=== PATIENT | male | born 1950 | race Caucasian/White ===

== ENCOUNTER → 2021-08-22 | Outpatient (CLI) | payer MEDICARE, SELFPAY | END | disposition home or self-care (01) | LOC: LABSPEC 16:42 | PROVIDERS: Visit Provider Physician Assistant | DX: U07.1 COVID-19 (principal) | CPT/HCPCS: 87635; U0005; U0003 ==

== ENCOUNTER 2021-08-23 17:16 | Outpatient (CLI) | payer MEDICARE, SELFPAY ==
[2021-08-23 17:24] VITALS: BP 135/59; PULSE 79; RESP 16; TEMP 37.2; O2SAT 98; BMI 33.3
[2021-08-23] MEDS: 0.9% Saline Lock 10 ML Syringe IV (17:29)
[2021-08-23 18:28] VITALS: BP 129/60; PULSE 74; RESP 16; TEMP 38.3; O2SAT 98
[2021-08-23] MEDS: Acetaminophen 325 MG Tablet 650 MG PO (18:46)
[2021-08-23 19:34] VITALS: BP 122/42; PULSE 69; RESP 16; TEMP 37.3; O2SAT 97
== END 2021-08-23 19:35 | disposition home or self-care (01) ==
LOC: MS3OUT 17:16 → MS3 17:16
PROVIDERS: Referring Provider Nurse Practitioner Adult Health; Visit Provider Nurse Practitioner Adult Health
DX: U07.1 COVID-19 (principal)
CPT/HCPCS: J7050; M0245; Q0245; A4216

== ENCOUNTER 2024-09-17 06:04 | Day surgery (SDC) | payer MEDICARE, SELFPAY ==
[2024-09-17] VITALS (7 sets, daily range): BP systolic 109–122; BP diastolic 55–72; PULSE 60–67; RESP 16–18; TEMP 36.3–36.4; O2SAT 92–98; BMI 37.6
--- NOTE | 2024-09-17 | IMM_PTH ---
PATIENT: ANTOINE DOMÍNGUEZ LOC: EN U#:[id number] AGE/SX: 74/M ROOM: RE09/17/[address]: Dr. Earl Fernandez DO : 1950 BED: DIS: 09/17/2024 SPEC #: [id number] RECD: 09/20/24 10:54 STATUS: ROSEANNE REQ #: [id number] DUANE: 09/17/24 00:[address]: Earl Fernandez DEPT: IMMUNOHISTOCHEMISTRY RECD BY: Brice Salvador ENTERED: 09/20/24 10:54 SP TYPE: IMMUNO OTHR DR: JAMES Rao Tissues: Esophagus, NOS Procedures: P53 (initial) KI-67 (add) PHYSICIAN & INSTITUTION [place] [id number] SPECIMEN INFORMATION: Tissue Source: Distal esophagus biopsy Clinical Info: Dysphagia and GERD Specimen Number: [id number] CPT code: 04852,80074 METHODOLOGY: Deparaffinized sections of prefer/formalin-fixed tissue or PAP/DQ stained slides are incubated with monoclonal/polyclonal antibodies/oligonucleotide probes. Localization is made via biotin free immunoperoxidase method. Appropriate controls are performed and reacted as expected. Results on target cell population are indicated in the following table: RESULTS: ANTIBODY / CLONE RESULT P53 (DO-7) positive, indeterminite type Ki-67 (30-9) positive, low These tests were developed and their performance characteristics determined by [facility]. They may not have been cleared or approved by the U.S. Food and Drug Administration. The FDA has determined that such clearance or approval is not necessary. The above immunohistochemical/dualISH markers are ordered and reviewed by the Pathologist. INTERPRETATION: Distal esophagus, biopsy: No definite evidence of dysplasia. 09/21/2024
--- NOTE | 2024-09-17 06:40 | PCM.PRE.AN2 ---
ASA Classification* ASA Classification ASA Classification: 2 Assessment & Plan Anesthesia* Anesthesia Assessment Anesthesia Assessment: Discussed sedation and/or anesthesia options, risks, benefits, and alternatives with patient/parents/legal guardian/POA. Questions invited. The patient/parents/legal guardian/POA seems to understand and agrees to proceed with anesthesia plan. Reviewed the physical assessment, medical history, allergy history and patient home medications list prior to surgery/procedure/anesthetic and documented any changes. Performed airway and anesthesia risk assessments. Anesthesia Type Anesthesia Type: MAC Anesthesia Focused Assessment* Airway Assessment Mouth opens: >3 cm Mallampati Score: II Focused Labs Anesthesia Preop lab: CBC CHEMISTRY COAG Pre-Assessment Diagnosis/Proposed Procedure Planned Operative Procedure(s): EGD Anesthesia History Anesthesia History - veneer stapler: Anesthesia History - veneer stapler Hx Hospitalization No 09/13/24 10:24 Any Problems With Anesthesia No 09/13/24 10:24 Cholinesterase deficiency No 09/13/24 10:24 You/Your Family Experience No 09/13/24 10:24 fever (hyperthermia) with Relationship Recent Exposure to Contagious No 09/17/24 06:36 Disease Does patient have nerve No 09/13/24 10:24 stimulator Patient instructed to have device shut off --Does patient have Pacemaker or ICD? When Was Last Pacemaker Check QUESTION #4 FULL TEXT: You/Your Family Experience fever (hyperthermia) with Anesthesia Last Oral Intake Last Oral intake: Last Oral Intake NPO since Meds taken in AM with sips of water? Meds patient instructed to take am of surgery PONV PONV - veneer stapler: PONV - veneer stapler Female No 09/13/24 10:24 HX of Motion Sickness No 09/13/24 10:24 HX of N/V After Surgery No 09/13/24 10:24 Non-Smoker Yes 09/13/24 10:24 Duration of Surgery greater No 09/13/24 10:24 than 60 minutes Number of Risk Factors 1 09/13/24 10:24 PONV Score Low Risk 09/13/24 10:24 Height & Weight Height & Weight: Anesthesia: Height & Weight Height 5 ft 8 in 08/23/21 17:24 Respiratory Assessment Respiratory Assessment - veneer stapler: Respiratory Tract Infection Hx - veneer stapler Hx Respiratory Tract Infection No 09/13/24 10:24 STOP Sleep Apnea STOP Sleep Apnea - veneer stapler: STOP Sleep Apnea - veneer stapler Hx Hypertension No 09/13/24 10:24 Hx Sleep Apnea Yes 09/13/24 10:24 CPAP No 09/13/24 10:24 BIPAP No 09/13/24 10:24 Do you snore loudly (louder than talking or can be heard Do you often feel tired/ fatigued/ sleepy during daytime? Has anyone observed you stop breathing during sleep? STOP Results Positive 09/13/24 10:24 QUESTION #5 FULL TEXT : Do you snore loudly (louder than talking or can be heard through closed doors)? Tobacco Use History Tobacco Use History - veneer stapler: Tobacco Use History - veneer stapler Tobacco Use Smoking Status Never smoker 09/13/24 10:24 Hx Tobacco Use No 09/13/24 10:24 Years Smoking Packs Smoked per Day Smoking Cessation Date was within the last 15 years Hx Smoking Cessation Date Hx Smoking Cessation Counseling Hematologic Medial History Hematologic Hx - veneer stapler: Hematologic Medical Hx - herb digger Hx of Blood Transfusion No 09/13/24 10:24 Hx of Transfusion in last 3 No 09/13/24 10:24 Months Date of Last Transfusion (if within last 3 months) Ever experience any problems No 09/13/24 10:24 with transfusion(s)? Specify any problems Hx of Preganancy in last 3 N/A 09/13/24 10:24 Months Nurse Filling Out Transfusion NBUCHER 09/13/24 10:24 & Questions: Date: 09/13/24 09/13/24 10:24 Time: 10:26 09/13/24 10:24 Patient unable to answer at this time (ie. confused, unrespo /Reproduction History /Reproductive History - veneer stapler: /Reproductive Hx- veneer stapler Hx Now No 09/13/24 10:24 Gestational Age (in weeks): EDC: Hx Hx Para Hx Section SAB No 09/13/24 10:24 PFSH Medical History Wears glasses Restless legs Difficulty swallowing History of IBS Heartburn Gastric reflux Sleep apnea Non-smoker History of stress test Irritable bowel syndrome Mild obstructive sleep apnea Fatigue Xanthelasma Vasovagal syncope GERD (gastroesophageal reflux disease) Home Medications ?Medication ?Instructions ?Recorded ?Last Taken ?Type ascorbic acid (vitamin C) 1,000 mg 1 g PO DAILY 09/13/24 Unknown History tablet (Vitamin C) Allergy/AdvReac Type Severity Reaction Status Date / Time No Known Allergies Allergy Verified 09/13/24 10:22 Family History Mother CAD (coronary artery disease) Sister Cancer Surgical History History of colonoscopy History of esophagogastroduodenoscopy (EGD) History of tonsillectomy Social History Smoking Status: Never smoker alcohol intake: never substance use type: does not use Review of Systems (Anesthesia) ROS Narrative System reviewed and no additional complaints, except as documented.
--- NOTE | 2024-09-17 06:53 | HP.PCM_ITS ---
History and Physical Date of Admission: 09/17/24 [facility] Complaint: severe heartburn and hiatal hernia on esophagram Details: ANTOINE DOMÍNGUEZ, is a 73 M who presents to the office today for establishment with [facility]. Pt was referred here by his PCP after having severe heartburn and esophagram showing a small hiatal hernia. He started taking omeprazole and most of his heartburn has resolved. He will take Tums on occasion. He did have some problems swallowing about 6 years ago but he is not now. He has some constipation but this is manageable for him. He tells me he was told he had a small tear in his esophagus so he would like to get a scope to get that looked at. ROS Const Constitutional: Positive for fatigue and weight change ENT ENT: Positive for difficulty swallowing Gastro GI: Positive for constipation, heartburn, difficulty swallowing, Blood in stool and vomiting Musc Musculoskeletal: Positive for restless legs Neuro Neurology: Positive for dizziness and restless legs Endo Endocrine: Positive for fatigue and weight change Exam Const General: cooperative and comfortable Nutritional Appearance: average body habitus and well nourished HENNC Head: normal to inspection Ears: hearing grossly normal bilaterally Nose: external nose normal Face and sinus: normal facial exam Mouth: abnormal oral mucosae Eyes General: appearance normal, both eyes and all related structures Neck Neck: normal visual inspection Chest Chest palpation & inspection: normal inspection of the chest Resp Effort & Inspection: normal respiratory effort GI Inspection: normal to inspection Palpation: no hepatosplenomegaly Skin General: no rashes or lesions noted Neuro General: patient alert Extrem General: normal to inspection Psych Affect: normal affect Assessment and Plan Assessment and Plan (1) Dysphagia: Plan: Pt is a 73 yo male here today for evaluation of heartburn and hx of dysphagia. He underwent esophagram showing a small hiatal hernia. He has been on PPI therapy and his heartburn has resolved. He is no longer having problems swallowing. He tells me that he was told he had a small tear in his esophagus. he would like to have an EGD. With the hx of severe heartburn, dysphagia and hiatal hernia I think an EGD would be of benefit. He will be scheduled for this. -EGD -Continue PPI -F/u as needed (2) GERD (gastroesophageal reflux disease): Status: Acute I have examined the patient and the H&P has been reviewed. There are no clinical changes since date of exam.
--- NOTE | 2024-09-17 07:00 | EGD_PTH ---
PATIENT: ANTOINE DOMÍNGUEZ LOC: EN U#:[id number] AGE/SX: 74/M ROOM: RE09/17/[address]: Dr. Earl Fernandez DO : 1950 BED: DIS: 09/17/2024 SPEC #: [id number] RECD: 09/17/24 09:03 STATUS: ROSEANNE ORTIZ #: [id number] DUANE: 09/17/24 07:[address]: Earl Fernandez DEPT: SURGICAL PATHOLOGY RECD BY: Louie Hernandez ENTERED: 09/17/24 09:50 SP TYPE: EGD BIOPSY OT DR: JAMES Rao Tissues: Esophagus, NOS Procedures: Special Stain Group I Surgery Specimen Level IV Alcian Blue/PAS (control) HEADER OPERATION: EGD with biopsy and dilation PRE-OP DIAGNOSIS: Dysphagia and GERD TISSUE SUBMITTED: Distal esophagus biopsy MICROSCOPIC DIAGNOSIS Distal esophagus, biopsy: Gastroesophageal junction with mild chronic inflammation. 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 Focal changes of reflux. No definitive evidence of dysplasia. See comment. AM. 09/20/2024 COMMENT Alcian blue/PAS stain with matched control supports the above diagnosis. Immunohistochemistry ([id number]) for P53 and Ki-67 will be performed and results will be reported separately. Clinical correlation is suggested. MICROSCOPIC DESCRIPTION Slides are reviewed. GROSS DESCRIPTION Received in fixative is one container labeled with the patient's name and designated Distal esophagus biopsy. The specimen consists of multiple irregular fragments of light herbert soft tissue that in aggregate measure 1.5 x 0.5 x 0.1 cm. The specimen is totally submitted in one cassette. AM. 09/17/2024 TC:3 CPT:76645,31433
--- NOTE | 2024-09-17 07:51 | PCM.POST.ANE ---
Anesthesia: Postop Eval I Current Vital Signs Temperature: 97.6 F Pulse Rate: 67 Blood Pressure: 109/72 Respiratory Rate: 16 Pulse Ox: 93 Oxygen Delivery Method: Room Air Assessment Airway patent: Yes Spontaneous unlabored respirations: Yes Mental status: Asleep nausea: No Vomiting: No Anesthesia Complication: No Fluid Hydration Crystalloid volume administer (ml): 30 Total IV fluid infused: 30 Progress Note Anesthesia document: Postop Eval 1 completed: Yes
--- NOTE | 2024-09-17 07:59 | OP.EGD_ITS ---
Patient Name: Ruben Villatoro Procedure Date: 09/17/2024 7:20 AM Date of : 1950 Age: 74 Procedure: Upper GI endoscopy Indications: Dysphagia, Heartburn Providers: Earl Fernandez DO Referring MD: Nas Rao Medicines: Monitored Anesthesia Care Patient Profile: This is a 74 year old male. Refer to note in patient chart for documentation of history and physical. Patient has symptoms of acute dysphagia and chronic heartburn. Complications: No immediate complications. Procedure: Pre-Anesthesia Assessment: - Prior to the procedure, a History and Physical was performed, and patient medications and allergies were reviewed. The patient is competent. The risks and benefits of the procedure and the sedation options and risks were discussed with the patient. All questions were answered and informed consent was obtained. Patient identification and proposed procedure were verified by the physician in the pre-procedure area. Mental Status Examination: alert and oriented. Airway Examination: normal oropharyngeal airway and neck mobility. Respiratory Examination: clear to auscultation. CV Examination: normal. Prophylactic Antibiotics: The patient does not require prophylactic antibiotics. Prior Anticoagulants: The patient has taken no anticoagulant or antiplatelet agents except for NSAID medication. ASA Grade Assessment: II - A patient with mild systemic disease. After reviewing the risks and benefits, the patient was deemed in satisfactory condition to undergo the procedure. The anesthesia plan was to use monitored anesthesia care (MAC). Immediately prior to administration of medications, the patient was re-assessed for adequacy to receive sedatives. The heart rate, respiratory rate, oxygen saturations, blood pressure, adequacy of pulmonary ventilation, and response to care were monitored throughout the procedure. The physical status of the patient was re-assessed after the procedure. After obtaining informed consent, the endoscope was passed under direct vision. Throughout the procedure, the patient's blood pressure, pulse, and oxygen saturations were monitored continuously. The Endoscope was introduced through the mouth, and advanced to the second part of duodenum. The upper GI endoscopy was accomplished without difficulty. The patient tolerated the procedure well. Scope In: 7:32:58 AM Scope Out: 7:41:05 AM Total Procedure Duration Time 0 hours 8 minutes 7 seconds Findings: There were esophageal mucosal changes consistent with long-segment Carolina's esophagus present in the lower third of the esophagus. The maximum longitudinal extent of these mucosal changes was 4 cm in length. Mucosa was biopsied with a cold forceps for histology in a targeted manner at intervals of 1 cm in the lower third of the esophagus. One specimen bottle was sent to pathology. Verification of patient identification for the specimen was done. Estimated blood loss was minimal. No gross lesions were noted in the entire examined stomach. Excessive fluid was found in the gastric body. No gross lesions were noted in the first portion of the duodenum. 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 Biopsied. - No gross lesions in the entire stomach. - Excessive gastric fluid. - No gross lesions in the first portion of the duodenum. Recommendation: - Discharge patient to home. - Resume previous diet. - Continue present medications. - Await pathology results. Procedure Code(s): --- Professional --- 20050, Esophagogastroduodenoscopy, flexible, transoral; with biopsy, single or multiple CPT copyright 2021 [employer]. All rights reserved. The codes documented in this report are preliminary and upon surgical clinical reviewer review may be revised to meet current compliance requirements. Earl Fernandez DO 09/17/2024 7:58:50 AM This report has been signed electronically. Number of Addenda: 0 Note Initiated On: 09/17/2024 7:20 AM
--- NOTE | 2024-09-17 07:59 | OP.CCLET_ITS ---
09/17/2024 Nas Rao Re : Upper GI endoscopy procedure for Ruben Lyons Néstor This procedure was performed on Tuesday, September 17, 2024. 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 Biopsied. - No gross lesions in the entire stomach. - Excessive gastric fluid. - No gross lesions in the first portion of the duodenum. Recommendations : - Discharge patient to home. - Resume previous diet. - Continue present medications. - Await pathology results. My findings are described in the full procedure note, which is enclosed. If I can be of further assistance, please feel free to contact me at . Sincerely, Earl Fernandez, 09/17/2024 7:58:50 AM This report has been signed electronically.
--- NOTE | 2024-09-17 08:47 | PCM.POSTANE2 ---
Anesthesia Postop Eval I Sum Postop Eval Completion status Anesthesia document: Postop Eval 1 completed: Yes Anesthesia Postop Eval I Summary Anesthesia Postop Eval I Summary: Anesthesia Postop Eval I: Assessment Summary Airway patent Yes 09/17/24 07:52 [email or web address] Spontaneous unlabored Yes 09/17/24 07:52 [email or web address] respirations Mental status Asleep 09/17/24 07:52 [email or web address] nausea No 09/17/24 07:52 [email or web address] Vomiting No 09/17/24 07:52 [email or web address] Anesthesia Postop Eval I: Fluid Summary Crystalloid volume administer 30 09/17/24 07:52 [email or web address] (ml) Colloids volume administered ( ml) Blood Product volume administered (ml) Total IV fluid infused 30 09/17/24 07:52 [email or web address] Anesthesia Postop Eval I: Summary Notes Anesthesia Complication No 09/17/24 07:52 [email or web address] Anesthesia Complication Comment: Post-operative progress note Anesthesia: Postop Eval II Evaluation Mental status: Awake Pain Level: 0 nausea: No Vomiting: No
== END 2024-09-17 08:25 | disposition home or self-care (01) ==
LOC: EN 06:13 → AC 06:14
PROVIDERS: Visit Provider Internal Medicine Gastroenterology
PROC: 0DJ08ZZ Inspection of Upper Intestinal Tract, Via Natural or Artificial Opening Endoscopic (ICD-10-PCS; CPT 43235; principal; 2024-09-17 06:55)
DX: R13.10 Dysphagia, unspecified (principal); K21.9 Gastro-esophageal reflux disease without esophagitis; G47.33 Obstructive sleep apnea (adult) (pediatric); Z86.16 Personal history of COVID-19
CPT/HCPCS: 43239; 88305; 88312; 88341; 88342; A4216; C1769; J2405